=== PATIENT | male | born 1990 | race Caucasian/White ===

== ENCOUNTER → 2018-01-02 | Outpatient (REF) | payer OTHER | LOC: M SFHCLERA 11:17 | DX: J02.9 Acute pharyngitis, unspecified (principal) ==

== ENCOUNTER → 2018-07-29 | Outpatient (REF) | payer OTHER ==
[2018-07-30 10:22] LABS: HEPATITIS A ANTIBODY IGM NEGATIVE (NEGATIVE); HEPATITIS B CORE ANTIBODY IGM NEGATIVE (NEGATIVE); HEPATITIS B SURFACE ANTIGEN NEGATIVE (NEGATIVE)
[2018-07-30 10:22] LABS: HEPATITIS C VIRUS ABY INDEX < 0.0 INDEX (<0.8)
== END ==
LOC: M LAB REF 16:19
DX: L81.8 Other specified disorders of pigmentation (principal)

== ENCOUNTER → 2019-02-16 | Outpatient (REF) | payer OTHER | LOC: M SFHCLERA 13:40 | PROVIDERS: ATTEND Physician Assistant | DX: J02.9 Acute pharyngitis, unspecified (principal) ==

== ENCOUNTER → 2020-09-17 | Outpatient (CLI) | payer OTHER ==
--- NOTE | 2020-09-20 12:59 | SLEEPCENT ---
DATE OF SERVICE: 09/17/2020 ORDERED BY: Hannah Cooper Nocturnal polysomnography was performed for evaluation of sleep physiology in this patient with a history of excessive tiredness, irregular sleep pattern, and irregular breathing in sleep. There was 7 hours and 52 minutes of data reviewed. There was 382.5 minutes of sleep identified. Sleep latency was mildly prolonged at 22.5 minutes. REM latency was more so prolonged at 235 minutes. Sleep architecture showed some fragmentation early in the study. Sleep become consolidated after 2 a.m., and there were three REM cycles appreciated. Overall sleep efficiency was good at 82.7%. The electrocardiogram showed a sinus rhythm with an average heart rate of 66 beats per minute. Rate ranged 42-98. EEG showed essentially normal waveforms for wake and sleep. There were only three obstructive respiratory events identified of 10 seconds in duration or greater, and these were hypopneic. The apnea-hypopnea index was well within normal limits. at 0.5. Snoring was, however, noted over the entire study. Arousals from respiratory events when arousals from snoring were included occurred 1.1 times per hour. There were no significant oxygen desaturations below 90%. There was some mild activity in the limb leads. Snoring was noted over the entire course of the study. IMPRESSION: Normal nocturnal polysomnography with snoring.
== END ==
LOC: M SLEEP 20:00
PROVIDERS: ATTEND Physician Assistant Medical
DX: R06.83 Snoring (principal)